=== PATIENT | female | born 1965 | race Caucasian/White ===

== ENCOUNTER → 2022-06-10 15:23 | Outpatient (CLI) | payer OTHER, SELFPAY ==
--- NOTE | ~2022-06-10 | XR_ITS ---
EXAM: XR shoulder RT min 2V DATE: 06/10/2022 16:06 HISTORY: Chronic right shoulder pain . COMPARISON: None available. FINDINGS: Normal mineralization. No fracture or dislocation. No lytic or blastic lesion. Joint space s are maintained. Degenerative subcortical cystic change in the anterior right humeral head. No erosi on or periosteal change. Soft tissues within normal limits. IMPRESSION: Findings of possible subcoracoid impingement, consider MR of the right shoulder for furth er evaluation. Reviewed, dictated and finalized at location [facility]. IMPRESSION: Findings of possible subcoracoid impingement, consider MR of the ri ght shoulder for further evaluation.
--- NOTE | ~2022-06-10 | XR_ITS ---
Cervical Spine: AP, lateral, oblique, open-mouth views Clinical History: Pain Findings: There is straightening of the normal cervical lordosis. The vertebral bodies and posterior elements appear intact. There is mild degenerative disc narrowing at C5-C6. Pre-vertebral soft tissu es are unremarkable. Impression: Mild degenerative disc narrowing at C5-C6. Straightening of the normal cervical lordosis. Reviewed, dictated and finalized at [facility]. Impression: Mild degenerative disc narrowing at C5-C6. Straightening of the normal cervical lordosis.
== END ==
PROVIDERS: Visit Provider Chiropractor
DX: M25.511 Pain in right shoulder (principal); M48.02 Spinal stenosis, cervical region
CPT/HCPCS: 72050; 73030

== ENCOUNTER → 2022-06-25 15:21 | Outpatient (CLI) | payer OTHER, BC, SELFPAY ==
--- NOTE | ~2022-06-25 | MR_ITS ---
MRI of the right shoulder Technique: Axial proton-density fat-sat images, coronal proton density fat-sat and T2 fat-sat images, and sagittal T1-weighted and T2 fat-sat images were acquired. Clinical History: Pain Findings: There is minimal AC joint degenerative change. Coracoclavicular, coracoacromial, and coraco humeral ligaments are intact. Supraspinatus and infraspinatus tendons are intact, without partial or full-thickness tear. There is mild to moderate tendinosis of the supraspinatus tendon. Subscapularis tendon is intact with mild to moderate tendinosis. Tendon of the long head of the biceps is intact, with probable intra-articular t endinosis. No labral tear identified. Inferior glenohumeral ligament is intact. Small glenohumeral joint effusion is present with probable small amount of debris in the axillary pouch. Probable minimal chondromalacia of the glenohumeral oc nt. No fluid distention of the subacromial/subdeltoid bursa. No muscle atrophy or edema. Impression: Rotator cuff tendinosis, as detailed above, without partial or full-thickness tear. Small glenohumeral joint effusion with probable minimal debris in the axillary pouch. Reviewed, dictated and finalized at location . Impression: Rotator cuff tendinosis, as detailed above, without partial or full-thickness t ear. Small glenohumeral joint effusion with probable minimal debris in the axillary pouch.
== END ==
PROVIDERS: Visit Provider Chiropractor
DX: M25.411 Effusion, right shoulder (principal)
CPT/HCPCS: 73221